=== PATIENT | female | born 1990 | race Caucasian/White ===

== ENCOUNTER 2023-11-23 22:32 | Emergency (ER) | payer OTHER, SELFPAY ==
[2023-11-23 22:35] VITALS: BP 149/99
[2023-11-23 22:49] LABS: % Basophils 0.3 % (0-2); % Immature Granulocytes 0.1 % (0-0.5); % Lymphocytes 32.2 % (20.5-51.1); % Monocytes 9.2 % (1.7-9.3); % Neutrophils 57.2 % (42.2-75.2); Absolute Eosinophils 0.1 10^3/uL (0-0.7); Absolute Monocytes 0.8 10^3/uL (0.1-0.6); Absolute Neutrophils 5.2 10^3/uL (1.4-6.5); Hematocrit 38.3 % (37.0-47.0); Hemoglobin 13.5 g/dL (12.0-16.0); Mean Corp Hgb Conc. 35.2 g/dL (33.0-37.0); Mean Corpuscular Hgb 29.9 pg (27.0-31.0); Mean Corpuscular Volume 84.9 fL (81.0-99.0); Mean Platelet Volume 8.9 fL (7.4-10.4); Nucleated Red Blood Cells % 0 %; Platelet Count 298 10^3/uL (130-400); Red Blood Cell Count 4.51 10^6/uL (4.20-5.40); Red Cell Dist. Width 11.9 % (11.5-14.5); White Blood Cell Count 9.2 10^3/uL (4.8-10.8)
[2023-11-23 23:06] LABS: HCG, Serum Qualitative Screen Negative
[2023-11-23 23:12] LABS: ALT (SGPT) 13 U/L (0-35); AST (SGOT) 21 U/L (14-36); Albumin 4.3 g/dl (3.5-5.0); Alkaline Phosphatase 46 U/L (38-126); Blood Urea Nitrogen 18 mg/dl (7-17); Calcium 9.1 mg/dl (8.4-10.2); Carbon Dioxide 24 mmol/L (22-30); Chloride 101 mmol/L (98-107); Glucose 98 mg/dl (70-99); Potassium 3.9 mmol/L (3.5-5.1); Sodium 136 mmol/L (135-145); Total Bilirubin 0.5 mg/dl (0.2-1.3); Total Protein 6.9 g/dl (6.3-8.2); eGFR > 60.00
[2023-11-24 00:15] VITALS: BP 126/79; BMI 27.0
[2023-11-24 01:00] VITALS: BP 118/97
[2023-11-24] MEDS: NSS 1000 IV (01:47)
--- NOTE | 2023-11-24 02:58 | ED.GENMED ---
History of Present Illness
General
Chief Complaint: Rectal Bleeding
Source: patient
Exam Limitations: none
Time Seen by Provider: 11/24/23 00:53
Nursing documentation reviewed up to this point in time: agreed with
Travel History
Have you had any contact with someone who has COVID-19?: No
Do you have any symptoms of coronavirus? Fever > 100 degrees, chills, cough, shortness of breath, sore throat, loss of taste or smell, muscle aches, or headache?: No
History of Present Illness
History of Present Illness:
This is a 33-year-old woman who has history of thrombosed external hemorrhoid and underwent excision of thrombosed external hemorrhoid this afternoon at Dr. Peter's office. She also had a skin tear removal. She admits to scant bleeding from
external hemorrhoid region that began around 5 PM but bleeding has markedly worsened and over the past 2 hours she has soaked through 3 maxi pads. She does admit to mild to moderate local anal pain but denies abdominal pain. She denies dizziness
nor lightheadedness, no chest pain or coughing or shortness of breath.
No history of similar episodes in the past.
She takes no anticoagulants and no known history of coagulopathy.
She denies risk of and does not believe bleeding is menstrual in nature as her last menstrual period was normal and on time October 31.
Past History
Past History
ED Past Medical History: None
ED Past Surgical History: Other (Breast implants and tummy tuck)
Social History
Tobacco: Non-smoker
Alcohol: Occasional
Personal:
Living: with family
Employment: Employed (Self-employed)
Family History
Family History: Other (Noncontributory)
Phy Exam
Physical Exam
Physical Exam:
GENERAL: 33-year-old woman appears her stated age, awake and alert, mildly anxious but easily communicative and cooperative.
EYE: anicteric
NECK: Supple, nontender, no meningismus, no significant adenopathy.
ENT: oral mucosa is moist. No rhinorrhea.
CARDIAC: Regular rate and rhythm. no murmur.
LUNGS: Clear breath sounds bilaterally, no acute respiratory distress, no wheezes/rales/rhonchi
ABDOMEN: Soft, nondistended, without focal tenderness, no r/g, no cvat. normoactive BS. Rectal exam reveals an incised external hemorrhoid with mild active/persistent oozing of blood from left/lateral side of the hemorrhoid. There is mild local
tenderness to palpation. There is no erythema, no perianal edema nor tenderness.
NEUROLOGICAL: Alert and oriented x3, no focal neuro deficits.
SKIN: Warm and dry, normal color, skin intact. No rash.
MUSCULOSKELETAL: No C/C/E. peripheral pulses are full and equal b/l. No palpable tenderness.
PSYCH: Normal and appropriate interaction.
Course
Orders/Labs/Results
Orders:
Orders
11/23/23 22:39
Test Result ONCE
11/23/23 22:42
Type+Screen Urgent
Complete Blood Count/With Diff Urgent
Comprehensive Metabolic Panel Urgent
HCG, Serum Qualitative Screen Urgent
11/24/23 01:36
0.9% Sodium Chloride 1000 ml [Nss] 1,000 ml IV BOLUS
Abnormal Lab Results
11/23/23
22:42
Absolute Monos (auto) 0.8 H 10^3/uL
(0.1-0.6)
BUN 18 H mg/dl
(7-17)
11/23/23 22:42
11/23/23 22:42
Vital Signs
Initial and Last Documented VS:
Initial Vital Signs
Temp Pulse Resp BP Pulse Ox
98.0 F 84 19 149/99 100
11/23/23 22:35 11/23/23 22:35 11/23/23 22:35 11/23/23 22:35 11/23/23 22:35
Last Documented Vital Signs
Temp Pulse Resp BP Pulse Ox
98.0 F 84 19 121/85 100
11/23/23 22:35 11/23/23 22:35 11/23/23 22:35 11/24/23 03:16 11/24/23 03:17
MDM/Problems Addressed
Differential Diagnosis Includes:
Patient presents with bleeding from recently excised thrombosed external hemorrhoid.
There is mild active/persistent bleeding from what appears to be the left side of the external hemorrhoid.
She remains hemodynamically stable.
Labs are reassuring, within normal limits. Hemoglobin is normal.
Will plan to locally inject with lidocaine with epinephrine and then topical cautery with silver nitrate.
*Pulse Oximetry
Patient hypoxic: no
*Critical Care Note
Total Time (30-74mins, 75-104mins- exclusive of procedures): Not Applicable
Update Note
Update Note:
Topical silver nitrate cautery to left medial aspect of external hemorrhoid successful with complete cessation of bleeding.
Will continue to observe for return of bleeding.
She remains hemodynamically stable but due to moderate amount of bleeding prior to arrival will give a liter of IV fluids.
11/24/2023 0308 AM
Perianal area remains dry with no return of bleeding.
Patient remains comfortable and pain-free.
She remains hemodynamically stable.
Will discharge to home with recommendations for follow-up with colorectal surgery.
Sitz bath as recommended by colorectal surgery. High-fiber diet, Tylenol as needed for pain.
ED Attending Note
-
Portions of this chart may have been created with voice recognition software.� Occasional wrong word or��sound alike� substitutions may have occurred due to the inherent limitations of voice recognition software.
Discharge Plan
Departure
Patient Disposition: Home (Routine Discharge)
Date of Disposition: 11/24/23
Time of Disposition: 03:09
Patient with high blood pressure during this ER visit?: No
Condition: Good
Discharge Problem:
External hemorrhoid, bleeding
Instructions: Hemorrhoids (DC), How to Do a Sitz Bath
Prescriptions:
No Action
celecoxib 200 MG capsule
200 mg PO BID
acetaminophen [Tylenol Extra Strength] 500 MG tablet
1,000 mg PO NOW PRN (Reason: pain)
gabapentin 100 MG capsule
100 mg PO TID
cefdinir [Omnicef] 300 MG capsule
300 mg PO BID 5 Days Qty: 10 0RF
amoxicillin-pot clavulanate 875-125 mg tablet
1 tab PO BID Qty: 14 0RF
mupirocin 2 % ointment
1 applic topical TID Qty: 22 0RF
Referrals:
Gab Peter MD [Active] - Call in 1-3 days for appt
Sheri De Jesus MD [Family Provider] -
Interventions
Interventions:
*Risk Screen - Suicide Last Done: 11/23/23 22:35
*General Assessment Last Done: 11/23/23 22:35
*Neglect/Abuse Screening Last Done: 11/23/23 22:35
ED- Fall Risk Assessment Last Done: 11/24/23 00:16
*ED COVID-19 Vaccine History Last Done: 11/23/23 22:35
*Nursing Disposition Last Done: 11/24/23 03:26
[facility] Assessment Last Done: 11/24/23 00:16
ED- Cardiac Assessment Last Done: 11/24/23 00:16
ED- Pulmonary Assessment Last Done: 11/24/23 00:16
Discharge Date and Time
Discharge Date/Time: 11/24/23 03:27
[2023-11-24 03:16] VITALS: BP 121/85
== END 2023-11-24 03:27 | disposition home or self-care (01) ==
LOC: EMR 22:32
PROVIDERS: EMERGENCY PHYSICIAN Emergency Medicine; FAMILY PHYSICIAN Internal Medicine
DX: K64.4 Residual hemorrhoidal skin tags (principal); K62.5 Hemorrhage of anus and rectum; K64.5 Perianal venous thrombosis; Z98.890 Other specified postprocedural states
CPT/HCPCS: 99284; 46083; 96360; 80053; 84703; 85025; 86850; 86900; 86901

== ENCOUNTER → 2024-05-28 15:57 | Outpatient (REF) | payer OTHER, SELFPAY | LOC: HWRAD 15:57 | PROVIDERS: ATTENDING PHYSICIAN Internal Medicine | DX: M79.644 Pain in right finger(s) (principal) | CPT/HCPCS: 73140 ==

== ENCOUNTER → 2024-08-11 12:06 | Outpatient (REF) | payer OTHER, SELFPAY | LOC: MRI 3T 12:06 | PROVIDERS: ATTENDING PHYSICIAN Physician Assistant; FAMILY PHYSICIAN Family Medicine | DX: M25.562 Pain in left knee (principal) | CPT/HCPCS: 73721 ==

== ENCOUNTER → 2025-02-26 12:25 | Outpatient (REF) | payer OTHER, SELFPAY | LOC: HWRAD 12:25 | PROVIDERS: ATTENDING PHYSICIAN Internal Medicine | DX: G89.29 Other chronic pain (principal); M54.6 Pain in thoracic spine | CPT/HCPCS: 72072 ==

== ENCOUNTER 2025-03-30 23:36 | Emergency (ER) | payer OTHER, SELFPAY ==
[2025-03-30 23:47] VITALS: BP 148/92
[2025-03-31 00:38] VITALS: BMI 24.4
[2025-03-31] MEDS: ERYTHROMYCIN 0.5% OPHTHALMIC OINTMENT 1 APPLIC OPHTH (01:03)
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
== END 2025-03-31 01:27 | disposition home or self-care (01) ==
LOC: EMR 23:36
PROVIDERS: EMERGENCY PHYSICIAN Student in an Organized Health Care Education/Training Program
DX: T20.16XA Burn of first degree of forehead and cheek, initial encounter (principal); S05.01XA Injury of conjunctiva and corneal abrasion without foreign body, right eye, initial encounter; T31.0 Burns involving less than 10% of body surface; X03.8XXA Other exposure to controlled fire, not in building or structure, initial encounter
CPT/HCPCS: 99282